=== PATIENT | male | born 1975 | race Caucasian/White ===

== ENCOUNTER 2025-04-28 09:50 | Emergency (ER) | payer BC, SELFPAY ==
--- OUTSIDE RECORDS SUMMARY | 2025-04-28 09:53 | XMS_ITS | Encounter Summary ---
Author Organization [facility] Address 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
--- OUTSIDE RECORDS SUMMARY | 2025-04-28 09:53 | XMS_ITS | Encounter Summary ---
Author Organization [facility] Address [address] [place] [address] Care Team Providers Care Emergency Vehicle Operations Instructor Name Role Phone Vel Batres DO Primary Care Provider Unav ailable Encounter Details Date Type Department Care Team (Latest Contact Info) Description 11/14/2004 Outpatient Historical 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
--- OUTSIDE RECORDS SUMMARY | 2025-04-28 09:53 | XMS_ITS | Encounter Summary ---
Author Organization [facility] Address 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
--- OUTSIDE RECORDS SUMMARY | 2025-04-28 09:53 | XMS_ITS | Clinical Summary ---
Author Organization [facility] Address [address] [place] [id number] Care Team Providers Care Breeder Hen Service Technician Name Role Phone Unavailable Primary Care Provider Unavailabl e Social History Tobacco Use Types Packs/Day Years Used Date Smoking Tobacco: Never Assessed Sex and Gender Information Value Date Recorded Sex Assigned at Not on file Legal Sex Male 7:34 PM CDT Gender Identity Not on file Sexual Orientation Not on file Plan of Treatment Health Maintenance Due Date Last Done Comments Colorectal Cancer Screening Colonoscopy (10 Years) 1973 Annual Physical 1976 Hepatitis C 1991 DTaP, Tdap and Td Vaccines ( 1 - Tdap) 1992 Hepatitis B Vaccines (1 of 3 - 19+ 3-dose series) 1992 Pneumococcal Vaccine: 50+ Ye ars (1 of 1 - PCV) 2023 Zoster Vaccines (1 of 2) 2023 COVID-19 Vaccine ( - 2024-2 6 season) 2025 Influenza Adult (#1) 2025 Hepatitis A Vaccines Aged Out No long er eligible based on patient's age to complete this topic Meningococcal B Vaccine Aged Out No l onger eligible based on patient's age to complete this topic Meningococcal Vaccine Aged Out No soraya hector eligible based on patient's age to complete this topic RSV Immunizations Under 20 Months Aged Out No longer eligible based on patient's age to complete this topic
--- OUTSIDE RECORDS SUMMARY | 2025-04-28 09:53 | XMS_ITS | Encounter Summary ---
Author Organization [facility] Address 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
--- OUTSIDE RECORDS SUMMARY | 2025-04-28 09:53 | XMS_ITS | Encounter Summary ---
Author Organization [facility] Address 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
--- OUTSIDE RECORDS SUMMARY | 2025-04-28 09:53 | XMS_ITS | Encounter Summary ---
Author Organization [facility] Address 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
--- OUTSIDE RECORDS SUMMARY | 2025-04-28 09:53 | XMS_ITS | Encounter Summary ---
Author Organization [facility] Address 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
--- OUTSIDE RECORDS SUMMARY | 2025-04-28 09:53 | XMS_ITS | Clinical Summary ---
Author Organization [facility] Address [address] [place] [address] Phone Care Team Providers Care Gate Manager Name Role Phone Vel Batres DO Primary Care Provider Unav ailable Allergies No known active allergies Medications methylPREDNISol one (MEDROL DOSPACK) 4 mg Oral DsPk Take by mouth. As directed 1 Package 0 10/31/2008 Active azithromycin (ZITHROMAX) 250 mg Oral tablet Take by mouth. 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 Gender Identity Not on file Sexual Orientation Not on file Last Filed Vital Signs Vital Sign Reading Time Taken Comments Blood Pressure 126/90 10/31/2008 3:39 PM CDT Pulse 76 10/31/2008 3:39 PM CDT Temperature 36.9 C (98.4 F) 10/31/2008 3:39 PM CDT Respiratory Rate 12 10/31/2008 3:39 PM CDT Oxygen Saturation - - Inhaled Oxygen Concentration - - Weight 127 kg (280 lb) 10/31/2008 3:39 PM CDT Height - - Body Mass Index - - Plan of Treatment Health Maintenance Due Date Last Done Comments DTAP/TDAP/TD VACCINES (1 - Tdap) 1992 HEPATITIS B VACCINES (1 of 3 - 19+ 3-dose series) 08/1992 COLORECTAL SCREENING 2018 Colorectal Cancer Screening 2018 FIT-DNA Q 3 years 2018 FIT/FOBT Q 1 year 2018 Flex Sig/CT Colonography Q 5 years 2018 ZOSTER VACCINE (1 of 2) 2023 INFLUENZA VACCINE (#1) 2024 Care Teams Gate Manager Relationship Specialty Start Date End Date Vel Batres DO NO ADDRESS ON FILE PCP - General 12/23/01
--- OUTSIDE RECORDS SUMMARY | 2025-04-28 09:53 | XMS_ITS | Encounter Summary ---
Author Organization [facility] Address 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
--- OUTSIDE RECORDS SUMMARY | 2025-04-28 09:53 | XMS_ITS | Encounter Summary ---
Author Organization [facility] Address 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
--- OUTSIDE RECORDS SUMMARY | 2025-04-28 09:53 | XMS_ITS | Encounter Summary ---
Author Organization [facility] Address 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
--- OUTSIDE RECORDS SUMMARY | 2025-04-28 09:53 | XMS_ITS | Encounter Summary ---
Author Organization [facility] Address 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
--- OUTSIDE RECORDS SUMMARY | 2025-04-28 09:53 | XMS_ITS | Encounter Summary ---
Author Organization [facility] Address 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
--- OUTSIDE RECORDS SUMMARY | 2025-04-28 09:53 | XMS_ITS | Encounter Summary ---
Author Organization [facility] Address 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
--- OUTSIDE RECORDS SUMMARY | 2025-04-28 09:53 | XMS_ITS | Encounter Summary ---
Author Organization [facility] Address 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
--- OUTSIDE RECORDS SUMMARY | 2025-04-28 09:53 | XMS_ITS | Encounter Summary ---
Author Organization [facility] Address 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
--- OUTSIDE RECORDS SUMMARY | 2025-04-28 09:53 | XMS_ITS | Encounter Summary ---
Author Organization [facility] Address 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
[2025-04-28 09:56] VITALS: BP 128/83; PULSE 83; RESP 20; TEMP 36.6; O2SAT 97
--- NOTE | 2025-04-28 10:38 | ED.EYEPROB ---
HPI - Eye Problem General Chief complaint: Eye Problems Stated complaint: right eye fb Time Seen by Provider: 04/28/25 10:38 Source: patient Mode of arrival: ambulatory Limitations: no limitations History of Present Illness HPI Narrative: 49 yo M presents with concern for FB to right eye. Was scrap rust from underneath of car 3 days ago and felt something drop into R eye. No vision change. States right eye red and irritated. Feels something when he blinks. All systems reviewed and negative except as noted above. Related Data Allergies Allergy/AdvReac Type Severity Reaction Status Date / Time No Known Allergies Allergy Verified 04/28/25 10:04 [facility] Comments At time of signature, agree with nursing past medical, surgical, social and family history. There is no relevant family history pertinent to the presenting complaint. Exam Narrative: GENERAL: This is a well-nourished, well-developed patient, in no apparent distress. HEAD: normocephalic, atraumatic. EYES: PERRL. sclera right eye erythematous. Topical anesthetic was instilled with good anesthesia using 1gtt of opth anesthetic agent (tetracaine). Fluorescein stain of the R eye was performed. Foreign body noted to cornea. Attempted to remove with Q-tip but unsuccessful. Normal saline irrigation eye solution was performed and the patient tolerated the procedure well, no adverse reaction or complications. EARS: External ears normal NOSE: External nose normal NECK: Neck supple, non-tender without lymphadenopathy, masses or thyromegaly. CARDIOVASCULAR: Regular rate and rhythm without murmurs, gallops, or rubs. RESPIRATORY: Clear to auscultation. Breath sounds equal bilaterally. No wheezes, rales, or rhonchi. SKIN: warm, Dry, intact with no suspicious lesions or rash, good texture and turgor. NEURO: awake, alert, and oriented to person, place and time. There were no obvious focal neurologic abnormalities. EXTREMITIES: No joint tenderness, effusion, or edema noted. Course Course Level of Care: Express Care Visit Vital Signs Vital signs: Vital Signs Temperature 36.6 C 04/28/25 09:56 Pulse Rate 83 04/28/25 09:56 Respiratory Rate 20 04/28/25 09:56 Blood Pressure 128/83 04/28/25 09:56 Pulse Oximetry 97 04/28/25 09:56 Oxygen Delivery Room Air 04/28/25 09:56 Temperature 36.6 C 04/28/25 09:56 Pulse Rate 83 04/28/25 09:56 Respiratory Rate 20 04/28/25 09:56 Blood Pressure 128/83 04/28/25 09:56 Pulse Oximetry 97 04/28/25 09:56 Oxygen Delivery Room Air 04/28/25 09:56 Reviewed Procedures FB Removal Eye Foreign Body #1: Foreign Body Removal Date: 04/28/25 Foreign Body Removal Time: 10:30 Location: eye (R) Topical anesthetic used: tetracaine Foreign body: metal Evidence of corneal penetration: Yes Technique: eye wash bottle and cotton tip swab Procedure performed under: direct visualization with magnification Post-procedure medication: ophthalmic antibiotic Patient tolerated procedure: well Complications: incomplete foreign body removal and corneal penetration Foreign Body Removal Narrative: referred to cardiovascular specialist for removal MDM - Eye Problem MDM Narrative Medical decision making narrative: unable to remove metal from pt's eye. recommend cardiovascular specialist. pt not experiencing any visual changes. Differential Diagnosis Differential diagnosis: Likely other (FB) Discharge Plan Discharge Clinical Impression: Foreign body in eyeball, right Patient Disposition: Home Condition: Stable Instructions: Eye Foreign Body (ED) Additional Instructions: Follow up with cardiovascular specialist to remove foreign body from right eye. Often [facility] have same day appointments. [facility] [phone] Patient Language: Syriac Prescriptions: New erythromycin 5 mg/gram (0.5 %) ointment 1 applic RIGHT EYE QID 10 Days Qty: 3.5 0RF Follow-up/Referrals: PHYSICIAN NOT ON STAFF,NONSTAFF [Primary Care Provider] Time of Disposition: 10:47
[2025-04-28] MEDS: DACRIOSE EYE IRRIGATION 118 ML BOTTLE RIGHT EYE (10:39)
[2025-04-28] MEDS: FLUORESCEIN SOD 1 MG/STRIP RIGHT EYE (10:39)
[2025-04-28] MEDS: TETRACAINE HCL 0.5% OPHTH SOLN 4 ML BTL RIGHT EYE (10:40)
== END 2025-04-28 10:54 | disposition home or self-care (01) ==
PROVIDERS: Emergency Provider Nurse Practitioner Family
DX: T15.01XA Foreign body in cornea, right eye, initial encounter (principal); W44.8XXA Other foreign body entering into or through a natural orifice, initial encounter
CPT/HCPCS: 65220; 99213; A9270; G0463